=== PATIENT | female | born 1965 | race Caucasian/White ===

== ENCOUNTER 2016-04-06 11:25 | Emergency (ER) | payer MEDICAID ==
[2016-04-06 11:42] VITALS: BP 175/96; PULSE 79; RESP 18; TEMP 98.2; O2SAT 99
[2016-04-06 11:59] LABS: COLOR ORANGE; LEUKOCYTE ESTERASE,URINE NEGATIVE (NEGATIVE); NITRITE,URINE NEGATIVE (NEGATIVE); PH,URINE 6.5 (5.0-7.5)
[2016-04-06 12:16] LABS: BACTERIA 1+ /hpf (NONE SEEN); MUCUS TRACE /lpf (NONE-1+); RBC,URINE >182 /hpf (0-3)
--- NOTE | 2016-04-06 12:27 | UCPHY ---
H & P Time Seen by Provider: 04/06/16 12:01 Patient Type: New HPI/ROS: HPI Urinary complaints. 51-year-old female by private vehicle. This patient reports that she was diagnosed with a urinary tract infection about 2 weeks ago. She was on a 3 day course of Keflex. She reports that she felt better after this but then symptoms returned. She presents complaining of nausea with 1 episode of nonbilious, nonbloody vomiting, fever intermittent, some flank pain bilaterally , burning with urination, increased frequency with urination and hematuria. She was not treated here. Last menstrual period-now. ROS: Constitutional: As above. No weakness. Eyes: No discharge. No changes in vision. ENT: No sore throat. No nasal congestion or rhinorrhea. Respiratory: No cough. No shortness of breath. Cardiac: No chest pain, no palpitations. Gastrointestinal: No abdominal pain, as above, no diarrhea. Genitourinary: As above. Musculoskeletal: As above. No neck pain. No myalgias or arthralgias. Skin: No rashes. Neurological: No headache. No focal weakness or altered sensation. Past medical history: Denies significant past medical history. Otherwise as above. Social history: She is here with her boyfriend. Physical Exam: General Appearance: Alert, no distress. This patient is responding to questions appropriately and in full sentences. This patient appears well- hydrated and well-nourished. Eyes: Pupils equal and round no pallor or injection. No lid edema, erythema or injection. Respiratory: There are no retractions, lungs are clear to auscultation with good air movement bilaterally. Cardiovascular: Regular rate and rhythm. No murmur. Gastrointestinal: Abdomen is soft and nontender, no masses, bowel sounds normal. No focal tenderness at McBurney's point. No Pollack sign. Neurological: Motor sensory function is grossly intact. Cranial nerves are normal. Gait is normal. Skin: Warm and dry, no rashes. Musculoskeletal: No significant CVA tenderness on palpation bilaterally. Extremities are symmetrical. All joints range without pain or impingement. Psychiatric: No agitation. No depression. Database: EKG: Imaging: Procedures: Emergency department course: Urinalysis obtained in triage. Indicates probable continued infection or new infection. She is allergic to penicillins. Secondary to recent history with treatment for UTI with Keflex, I will treat her with Levaquin. Negative urine test. She was given 750 mg of oral Levaquin in the emergency department. I will prescribe her this for the next 7 days. Urine culture has been sent. She does feel comfortable going home. Her vital signs have been reviewed. She was moderately hypertensive but otherwise afebrile and vital signs were unremarkable. Return to Urgent Care precautions were discussed with her. All of her questions were answered. She was discharged in good condition. Differential Diagnosis: The differential diagnosis on this patient includes but is not limited to urinary tract infection, pyelonephritis, viral syndrome. This represents a partial list of diagnoses considered. These considerations are based on history , physical exam, past history, reassessment and diagnostic testing. Smoking Status: Current every day smoker Constitutional: Initial Vital Signs Temperature (C) 36.8 C 04/06/16 11:38 Heart Rate 79 04/06/16 11:38 Respiratory Rate 18 04/06/16 11:38 Blood Pressure 175/96 H 04/06/16 11:38 O2 Sat (%) 99 04/06/16 11:38 O2 Delivery Mode Room Air Allergies/Adverse Reactions: amoxicillin Allergy (Verified 04/06/16 11:38) iodine Allergy (Verified 04/06/16 11:38) Home Medications: Medication Instructions Recorded levOFLOXACIN [levAQUIN (*)] 750 mg PO DAILY #7 tab 04/06/16 Medical Decision Making - Data Points Laboratory Results: 04/06/16 04/06/16 11:45 11:43 Urine Color ORANGE Urine Appearance HAZY Urine pH 6.5 (5.0-7.5) Ur Specific [place] 1.025 (1.002-1.030) Urine Protein 1+ H (NEGATIVE) Urine Ketones 3+ H (NEGATIVE) Urine Blood 3+ H (NEGATIVE) Urine Nitrate NEGATIVE (NEGATIVE) Urine Bilirubin POSITIVE H (NEGATIVE) Urine Urobilinogen 0.2 EU (0.2-1.0) Ur Leukocyte Esterase NEGATIVE (NEGATIVE) Urine RBC >182 H /hpf (0-3) Urine WBC 10-15 H /hpf (0-3) Ur Epithelial Cells 2+ H /lpf (NONE-1+) Urine Bacteria 1+ H /hpf (NONE SEEN) Urine Mucus TRACE /lpf (NONE-1+) Ur Culture Indicated? INDICATED H (NI) Urine Glucose NEGATIVE (NEGATIVE) Urine Test NEGATIVE Departure - Departure Disposition: Home, Routine, Self-Care Clinical Impression: Urinary tract infection Condition: Good Instructions: Urinary Tract Infection in Women (ED) Additional Instructions: Read and follow provided instructions. Follow-up with your primary care physician in 2-3 days for re-evaluation. Take medication as prescribed through entire course of treatment. Return to the emergency department for worsening pain, fever, back pain, vomiting or other serious concerns. Referrals: [place],. [Primary Care Provider] - As per Instructions Prescriptions: levOFLOXACIN [levAQUIN (*)] 750 mg PO DAILY #7 tab - PQRS PQRS Measurement: Not applicable.
== END 2016-04-06 12:47 | disposition home or self-care (01) ==
LOC: CED 11:25
DX: N39.0 Urinary tract infection, site not specified (principal); F17.200 Nicotine dependence, unspecified, uncomplicated; Z88.1 Allergy status to other antibiotic agents
CPT/HCPCS: 81003-PO; 81015-PO; 81025-PO; 99203-PO; G0463-PO